=== PATIENT | male | born 1990 | race African-American/Black ===

== ENCOUNTER → 2019-03-08 | Outpatient (CLI) | payer OTHER ==
--- NOTE | 2019-03-08 10:14 | REP ---
Two-view chest and three views thoracic spine: Indication: Chest/thoracic pain. Comparison: None. Findings: The lungs are clear. There is no pleural effusion or pneumothorax. The cardiomediastinal silhouette is unremarkable. There is minimal dextroscoliosis of the thoracolumbar spine centered at T11/T12 . There is no acute fracture, subluxation or dislocation. Impression: No acute cardiopulmonary process. No acute fracture. Electronically Signed by Augustine Javed DO 03/08/2019 10:07 A
--- NOTE | 2019-03-08 10:16 | REP ---
Please see report for accession number [id number] as the reports were dictated together. Electronically Signed by Augustine Javed DO 03/08/2019 10:08 A
== END ==
LOC: M RAD 08:37
PROVIDERS: ATTEND Surgery
DX: R07.9 Chest pain, unspecified (principal)